=== PATIENT | male | born 1945 | race Caucasian/White ===

== ENCOUNTER 2022-02-24 09:51 | Inpatient (IN) | payer MEDICARE ==
[~2022-02-24] VITALS: Ht 175.3 cm; Wt 94.7 kg
[~2022-02-24 09:51] MED LIST: CVS10CAP7 PO; D3 S20002 PO; FLOM0.4C39 PO; LIDOCAINE 2% 100MG/5ML SDV (FOR ANES.) As Ordered ONE; LISI5TAB11 PO; MIDAZOLAM INJ 2MG/2ML VIAL (J2250 PER 1MG) As Ordered ONE; NORV5TAB PO; PROP80CA PO; ROCURONIUM BROMIDE 50 MG/5 ML VIAL As Ordered ONE; SIMV20TA22 PO; VITMTA PO; ceFAZolin SOD 2 GM in IV 1 EA IV ONE; fentaNYL 250 MCG/5 ML INJECTION As Ordered ONE; propofoL 200 MG/20 ML VIAL As Ordered ONE
[2022-02-24] MEDS ORDERED: LR 1,000 ML IV SCH ×2 (10:35→16:35)
[2022-02-24] MEDS ORDERED: BUPIVACAINE HCL 0.25% 30ML VIAL As Ordered ONE (11:59)
[2022-02-24] MEDS ORDERED: LIDOCAINE 1% SDV 30ML VIAL As Ordered ONE (11:59)
[2022-02-24] MEDS ORDERED: ACETAMINOPHEN TAB 650MG DOSE (2X325MG) PO PRN (12:25)
[2022-02-24] MEDS ORDERED: NS 1,000 ML IV SCH (12:25)
[2022-02-24] MEDS ORDERED: ONDANSETRON 4MG 2ML VIAL IV PRN ×2 (12:25→16:35)
[2022-02-24] MEDS ORDERED: LACRILUBE (AKWA TEARS) OPHTH OINT 3.5 GM As Ordered ONE ×2 (12:30→13:39)
[2022-02-24] MEDS ORDERED: DESFLURANE 240 ML INHALANT As Ordered ONE (12:32)
[2022-02-24] MEDS ORDERED: HEPARIN SOD (PORCINE) 5000UNITS/ML 1ML VIAL/SYRINGE As Ordered ONE (12:36)
[2022-02-24] MEDS ORDERED: ROCURONIUM BROMIDE 50 MG/5 ML VIAL As Ordered ONE ×2 (13:33→15:58)
[2022-02-24] MEDS ORDERED: HYDROmorphone HCL 2MG/ML 1ML VIAL As Ordered ONE (13:34)
[2022-02-24] MEDS ORDERED: ACETAMINOPHEN 1000MG 100ML IV BAG As Ordered ONE (13:37)
[2022-02-24] MEDS ORDERED: SUGAMMADEX SODIUM 500 MG/5 ML VIAL (BRIDION) As Ordered ONE (13:37)
[2022-02-24] MEDS ORDERED: ONDANSETRON 4MG 2ML VIAL As Ordered ONE (13:37)
[2022-02-24] MEDS ORDERED: KETOROLAC 60MG 2ML VIAL As Ordered ONE (13:37)
[2022-02-24] MEDS ORDERED: dexameTHASONE 4 MG/ML 1ML VIAL (J1100 PER 1MG) As Ordered ONE (13:37)
[2022-02-24] MEDS ORDERED: ePHEDrine SULFATE 25 MG/5 ML(5MG/ML) SYRINGE As Ordered ONE (14:40)
[2022-02-24] MEDS ORDERED: oxyCODONE 5MG TAB PO PRN (16:35)
[2022-02-24] MEDS ORDERED: fentaNYL 100 MCG/2 ML INJECTION IV PRN (16:35)
[2022-02-24] MEDS ORDERED: METOCLOPRAMIDE INJ 10MG/2ML VIAL IV PRN (16:35)
[2022-02-24] MEDS ORDERED: HYDROMORPHONE HCL 0.5 MG/ 0.5 ML SYRINGE (J1170 PER 1) IV PRN (16:35)
[2022-02-24 18:05] LABS: HEMATOCRIT 38.9 % (42.0-52.0); HEMOGLOBIN 12.7 g/dl (13.5-17.5); MEAN CORPUSCULAR HEMOGLOBIN 29.5 pg (27.0-33.0); MEAN CORPUSCULAR HGB CONC 32.6 g/dl (32.0-36.5); MEAN CORPUSCULAR VOLUME 90.5 fl (80.0-96.0); PLATELET COUNT, AUTOMATED 139 10^3/uL (150-450); WHITE BLOOD COUNT 8.9 10^3/uL (4.0-10.0)
[2022-02-24 18:09] VITALS: BP 148/73
[2022-02-24 18:35] LABS: BLOOD UREA NITROGEN 26 MG/DL (9-23); CALCIUM LEVEL 8.7 MG/DL (8.3-10.6); CARBON DIOXIDE LEVEL 23 MMOL/L (20-31); CHLORIDE LEVEL 105 MMOL/L (98-107); CREATININE FOR GFR 1.18 MG/DL (0.70-1.30); GLOMERULAR FILTRATION RATE > 60.0 (>42); GLUCOSE, FASTING 103 MG/DL (74-106); POTASSIUM SERUM 4.7 MMOL/L (3.5-5.1); SODIUM LEVEL 138 MMOL/L (136-145)
[2022-02-24 18:37] VITALS: BP 126/78
[2022-02-24] MEDS: PERCOCET 5MG/325MG TAB PO PRN (18:57)
[2022-02-24 19:08] VITALS: BP 125/76
[2022-02-24 19:52] VITALS: BP 118/75
[2022-02-24] MEDS: ceFAZolin SOD 1 GM in D5W MINI-BAG PLUS 50 ML IV SCH (20:11)
[2022-02-24] MEDS: DOCUSATE SODIUM 100MG CAPSULE PO SCH (20:11)
[2022-02-24] MEDS: HEPARIN SOD (PORCINE) 5000UNITS/ML 1ML VIAL/SYRINGE SC SCH (20:11)
[2022-02-24] MEDS ORDERED: SIMVASTATIN 40 MG TAB PO SCH (21:00)
[2022-02-24 21:07] VITALS: BP 133/71
[2022-02-24 22:00] VITALS: BP 122/72
[2022-02-25 02:00] VITALS: BP 161/82
[2022-02-25] MEDS: ceFAZolin SOD 1 GM in D5W MINI-BAG PLUS 50 ML IV SCH (04:13)
[2022-02-25 05:39] VITALS: BP 147/80
[2022-02-25] MEDS: HEPARIN SOD (PORCINE) 5000UNITS/ML 1ML VIAL/SYRINGE SC SCH ×2 (06:06→14:06)
[2022-02-25] MEDS: PERCOCET 5MG/325MG TAB PO PRN ×3 (06:22→18:08)
[2022-02-25 06:56] LABS: HEMATOCRIT 37.5 % (42.0-52.0); HEMOGLOBIN 12.6 g/dl (13.5-17.5); MEAN CORPUSCULAR HEMOGLOBIN 29.9 pg (27.0-33.0); MEAN CORPUSCULAR HGB CONC 33.6 g/dl (32.0-36.5); MEAN CORPUSCULAR VOLUME 88.9 fl (80.0-96.0); PLATELET COUNT, AUTOMATED 165 10^3/uL (150-450); RED BLOOD COUNT 4.22 10^6/uL (4.30-6.10); WHITE BLOOD COUNT 11.2 10^3/uL (4.0-10.0)
[2022-02-25 07:12] LABS: BLOOD UREA NITROGEN 32 MG/DL (9-23); CALCIUM LEVEL 8.4 MG/DL (8.3-10.6); CARBON DIOXIDE LEVEL 24 MMOL/L (20-31); CHLORIDE LEVEL 105 MMOL/L (98-107); CREATININE FOR GFR 1.07 MG/DL (0.70-1.30); GLOMERULAR FILTRATION RATE > 60.0 (>42); GLUCOSE, FASTING 109 MG/DL (74-106); POTASSIUM SERUM 4.7 MMOL/L (3.5-5.1); SODIUM LEVEL 139 MMOL/L (136-145)
[2022-02-25] MEDS ORDERED: lisinopriL 5 MG TAB PO SCH (09:00)
[2022-02-25] MEDS ORDERED: amLODIPine 5 MG TAB PO SCH (09:00)
[2022-02-25] MEDS ORDERED: PROPRANOLOL 80MG LA CAP PO SCH (09:00)
[2022-02-25 10:00] VITALS: BP 143/82
[2022-02-25] MEDS: DOCUSATE SODIUM 100MG CAPSULE PO SCH (10:01)
[2022-02-25 10:20] VITALS: BP 147/84
[2022-02-25] MEDS ORDERED: FUROSEMIDE 20MG/2ML VIAL (J1940) IV ONE (13:40)
[2022-02-25 14:00] VITALS: BP 125/67
[2022-02-25 17:35] LABS: CREATININE BF 1.3 MG/DL (NOT ESTABLISHED); SOURCE, BODY FLUID CREATININE PERITONEAL
[2022-02-25] MEDS ORDERED: BACT800T5 PO (17:44)
[2022-02-25] MEDS ORDERED: COLA100C5 PO (17:44)
[2022-02-25] MEDS ORDERED: PERCOCET PO (17:44)
== END 2022-02-25 18:35 | disposition home or self-care (01) | DRG 708 ==
LOC: M OR 09:51 → EDUNIT# 13:00 → M MS5PR 17:50
PROVIDERS: ADMIT Urology; ATTEND Urology
PROC: 07TC4ZZ Resection of Pelvis Lymphatic, Percutaneous Endoscopic Approach (ICD-10-PCS; 2022-02-24)
PROC: 8E0W4CZ Robotic Assisted Procedure of Trunk Region, Percutaneous Endoscopic Approach (ICD-10-PCS; 2022-02-24)
PROC: 0VT04ZZ Resection of Prostate, Percutaneous Endoscopic Approach (ICD-10-PCS; principal; 2022-02-24 13:00)
DX: C61 Malignant neoplasm of prostate (principal); I10 Essential (primary) hypertension; E78.00 Pure hypercholesterolemia, unspecified; F17.210 Nicotine dependence, cigarettes, uncomplicated; Z80.42 Family history of malignant neoplasm of prostate; Z79.899 Other long term (current) drug therapy